=== PATIENT | male | born 1985 | race Two or more races ===

== ENCOUNTER 2017-11-16 00:11 | Emergency (ER) | payer SELFPAY ==
[~2017-11-16] VITALS: Ht 182.9 cm; Wt 92.5 kg
[2017-11-16 00:15] VITALS: BP 115/77
[2017-11-16] MEDS: HYDROCODONE/APAP 10/325MG 1 EA TABLET PO ONE (00:45)
[2017-11-16] MEDS: ONDANSETRON 4 MG TAB.RAPDIS SL ONE (00:46)
--- NOTE | 2017-11-16 00:46 | NUR ---
PT SIGNED AMA FORM AND WAS EXPLAINED IN DETAIL WHAT THAT MEANS. ER MD NAYAK HAS ALSO GONE OVER DETAILS WITH PATIENT AND HE STILL WANTED TO AMA. WILL TAKE OUT OF SYSTEM. PATIENT HAS LEFT WITH STEAD[facility] GAIT IN STABLE CONDITION
== END 2017-11-16 00:48 | disposition left against medical advice (07) ==
LOC: ER 00:14
DX: S79.812A Other specified injuries of left hip, initial encounter (principal); W18.39XA Other fall on same level, initial encounter; Y93.01 Activity, walking, marching and hiking; Y92.69 Other specified industrial and construction area as the place of occurrence of the external cause; Y99.8 Other external cause status
CPT/HCPCS: A4606; Z7610